=== PATIENT | male | born 2000 | race Asian ===

== ENCOUNTER 2023-08-08 13:39 | Outpatient (REF) | payer OTHER, SELFPAY ==
[2023-08-08 15:20] LABS: MANUAL DIFF FLAG NO
[2023-08-08 15:56] LABS: Basophils Percent Auto 0.5 % (0-2); Eosinophils Absolute Auto 0.1 X10*3/uL (0.0-0.4); Eosinophils Percent Auto 1.8 % (0-4); Hematocrit 46.1 % (42.0-52.0); Hemoglobin 15.1 g/dl (14.0-18.0); Imm Gran Abs Auto 0.02 X10*3/uL (0.00-0.03); Imm Gran Pct Auto 0.3 % (0.0-0.4); Lymphocytes Absolute Auto 2.4 X10*3/uL (1.2-4.9); Lymphocytes Percent Auto 32.7 % (20-40); Mean Corpuscular HGB Conc 32.8 g/dl (31.0-36.0); Mean Corpuscular Hemoglobin 24.4 pg (27.0-33.0); Mean Corpuscular Volume 74.5 fL (80.0-98.0); Mean Platelet Volume 10.4 fL (9.4-12.4); Monocytes Absolute Auto 0.7 X10*3/uL (0.1-1.2); Monocytes Percent Auto 9.3 % (2-11); Neutrophils Absolute Auto 4.1 x10*3/uL (2.0-8.3); Neutrophils Percent Auto 55.4 % (45-73); Platelet Count 312 X10*3/uL (160-400); Red Blood Count 6.19 X10*6/uL (4.60-5.80); Red Cell Distribution Width 13.9 % (11.0-16.0); White Blood Count 7.4 X10*3/uL (4.8-10.8)
[2023-08-08 16:37] LABS: Alanine Aminotransferase 22 U/L (0-40); Albumin Level 4.5 g/dL (3.5-5.0); Alkaline Phosphatase 126 U/L (39-117); Anion Gap 13 (12-20); Aspartate Amino Transferase 18 U/L (5-37); Bilirubin Total 0.2 mg/dL (0.0-1.0); Blood Urea Nitrogen 13 mg/dL (9-16); C Reactive Protein 0.34 mg/dL (< or = 0.50); Carbon Dioxide 27 mmol/L (22-29); Chloride 105 mmol/L (96-108); Estimated Glomerular Filt Rate > 60; Glucose Random 83 mg/dL (60-115); Sodium 141 mmol/L (135-145); Total Protein 8.3 g/dL (6.5-8.0)
[2023-08-08 16:43] LABS: Vitamin D 25-OH Total 14.4 ng/mL (>30)
[2023-08-08 17:04] LABS: Folate 10.4 ng/mL (> or = 4.0)
[2023-08-09 02:51] LABS: Vitamin B12 168 pg/mL (200-900)
== END 2023-08-08 13:40 | disposition home or self-care (01) ==
LOC: HO.LAB 13:39
PROVIDERS: Visit Provider Internal Medicine Gastroenterology
DX: K75.81 Nonalcoholic steatohepatitis (NASH) (principal); E46 Unspecified protein-calorie malnutrition; R19.8 Other specified symptoms and signs involving the digestive system and abdomen; R14.0 Abdominal distension (gaseous); Z91.018 Allergy to other foods
CPT/HCPCS: 36415; 80053; 82306; 82607; 82746; 85025; 86003; 86140

== ENCOUNTER 2023-08-08 13:39 | Outpatient (AMB) | payer OTHER, SELFPAY ==
--- NOTE | 2023-08-08 13:46 | A.OFFVIS_ITS ---
Intake Vital Signs 08/08/23 13:48 Height 5 ft 10 in Weight 204 lb 9.423 oz BMI 29.4 BP 151/84 H Blood Pressure Location Rt brachial Position Sitting Intake Visit Reasons: Pt appointment made per Bernarda Intake Note: Patient presents to in office visit today as a new patient for abdominal bloating. CC: Patient c/o increased gas, abdominal bloating, constipation, and diarrhea. Patient reports he had x4 surgeries for his toe and he was placed on abx and ever since he has being having GI issues. Toe surgeries were done between 09/16/22 -01/28/23. Hair Boiler Required: No Accompanied by: Spouse Allergies ibuprofen Allergy (Unknown, Verified 08/08/23 13:54) Rash HPI Pt appointment made per Bernarda HPI Details 23 yr old patient being seen for assessm ent for GI sx HE is having issues with bloating and gas sx for 8 months seems to have been after Abx and surgeries for a toe he can have urgency and cramping abdominal pain he can issues with rice no nausea, vomiting no skin rash he has leg discomfort for years he takes lo salt diet occ loose stool other times constipation he had taken probiotics trunature he has 3 meals a day, eggs and tea, rice with braga, roti --on and off fruits lactose intolerance --some difference with avoidance PMH: gout and high uric acid PSH: none SH: student, no alcohol, non smoker, FH: HTN and CABG in father and uncles ROS: Constitutional : No Weight loss, No Fever, No Chills ENT/Mouth : No sore throat, No Rhinorrhea Eyes: No Swelling, No Redness Cardiovascular : No Chest Pain, No SOB, No Edema Respiratory : No Cough, No Sputum, No Wheezing Gastrointestinal : see HPI Genitourinary : NO Dysuria, No Urinary Frequency, No Hematuria, No Urgency Musculoskeletal : No joint pain, No Myalgias, No Joint Swelling Skin : No Skin Lesions, No rash Neuro : No Weakness, No Numbness, No Dizziness, No Headache Psych : No Anxiety/Panic, No Depression, +stress Heme/Lymph: No Bruising, No Lymphadenopathy Endocrine : No Polyuria, No Polydipsia All other systems reviewed and are negative. EXAM: GENERAL: The patient is well developed and nontoxic. VITAL SIGNS:see workflow HEENT: Nonicteric sclerae, PERRLA, EOMI. Oropharynx clear. Moist mucous membranes. Conjunctivae appear well perfused. No thyroid mass. CHEST: Chest wall is nontender. HEART: Regular rate and rhythm without murmurs. LUNGS: Clear to auscultation bilaterally. ABDOMEN: Soft, positive bowel sounds, nontender, no organomegaly.no flank tenderness SKIN: No rash, no excessive bruising, petechiae, or purpura. NEUROLOGIC: Cranial nerves II-XII intact without motor/sensory deficit. Psych: nml affect A/P: 1/ Abnormal bowel habit, bloating and g as ddx: SIBO, CHO intolerance, c diff, less likely IBD, food allergies Plan: 1/ trial of rifaximin 2/ labs and stool testing, as below 3/ allergy testing [facility] Surgical History H/O wisdom tooth extraction H/O toe surgery Family History Father HTN (hypertension) Diabetes H/O heart surgery Social History Alcohol intake: never Patient Tobacco Use Status: Never used Tobacco Use of substances other than those prescribed or required for medical reasons: No Physical Exam Vital Signs: Last Vital Signs BP 151/84 H 08/08/23 13:48 BMI result Body Mass Index 29.4 Assessment & Plan Assessment & Plan (1) Malnutrition: Code(s): E46 - Unspecified protein-calorie malnutrition Plan: A/P: 1/ Abnormal bowel habit, bloating and gas ddx: SIBO, CHO intolerance, c diff, less likely IBD, food allergies Plan: 1/ trial of rifaximin 2/ labs and stool testing, as below 3/ allergy testing (2) Abnormal bowel habits: Code(s): R19.8 - Other specified symptoms and signs involving the digestive system and abdomen Plan: A/P: 1/ Abnormal bowel habit, bloating and gas ddx: SIBO, CHO intolerance, c diff, less likely IBD, food allergies Plan: 1/ trial of rifaximin 2/ labs and stool testing, as below 3/ allergy testing (3) Abdominal bloating: Code(s): R14.0 - Abdominal distension (gaseous) Plan: A/P: 1/ Abnormal bowel habit, bloating and gas ddx: SIBO, CHO intolerance, c diff, less likely IBD, food allergies Plan: 1/ trial of rifaximin 2/ labs and stool testing, as below 3/ allergy testing Orders: Orders Comprehensive Met. Panel Today E46 - Unspecified protein-calorie malnutrition, K75.81 - Nonalcoholic steatohepatitis ([place]ILSON), R14.0 - Abdominal distension (gaseous), R19.8 - Other specified symptoms and signs involving the digestive system and abdomen Lactoferrin, Fecal, Quant. Today E46 - Unspecified protein-calorie malnutrition, K51.50 - Left sided colitis without complications, R14.0 - Abdominal distension (gaseous), R19.8 - Other specified symptoms and signs involving the digestive system and abdomen Erythrocyte Sedimentation Rate Today E46 - Unspecified protein-calorie malnutrition, R14.0 - Abdominal distension (gaseous), R19.8 - Other specified symptoms and signs involving the digestive system and abdomen GI Panel Today E46 - Unspecified protein-calorie malnutrition, R14.0 - Abdominal distension (gaseous), R19.7 - Diarrhea, unspecified, R19.8 - Other specified symptoms and signs involving the digestive system and abdomen Vitamin B12 and Folate Today E46 - Unspecified protein-calorie malnutrition, R14.0 - Abdominal distension (gaseous), R19.8 - Other specified symptoms and signs involving the digestive system and abdomen Complete Blood Count Auto Diff Today E46 - Unspecified protein-calorie malnutrition, R14.0 - Abdominal distension (gaseous), R19.8 - Other specified symptoms and signs involving the digestive system and abdomen C Reactive Protein Today E46 - Unspecified protein-calorie malnutrition, R14.0 - Abdominal distension (gaseous), R19.8 - Other specified symptoms and signs involving the digestive system and abdomen CDiff Gene PCR Today E46 - Unspecified protein-calorie malnutrition, R14.0 - Abdominal distension (gaseous), R19.8 - Other specified symptoms and signs involving the digestive system and abdomen Vitamin D 25-OH Total Today E46 - Unspecified protein-calorie malnutrition, R14.0 - Abdominal distension (gaseous), R19.8 - Other specified symptoms and signs involving the digestive system and abdomen Rast Allergen Today E46 - Unspecified protein-calorie malnutrition, R14.0 - Abdominal distension (gaseous), R19.8 - Other specified symptoms and signs involving the digestive system and abdomen, Z91.018 - Allergy to other foods Medications: New rifaximin 550 mg PO TID 2 weeks 42 tabs 0RF Coding Level of Care Code New Pt Level 4 (24318) Diagnoses Malnutrition E46 Abnormal bowel habits R19.8 Abdominal bloating R14.0
[2023-08-08 13:48] VITALS: BP 151/84; BMI 29.4
== END 2023-08-08 15:01 | disposition home or self-care (01) ==
PROVIDERS: Visit Provider Internal Medicine Gastroenterology
DX: E46 Unspecified protein-calorie malnutrition (principal); R19.8 Other specified symptoms and signs involving the digestive system and abdomen; R14.0 Abdominal distension (gaseous)
CPT/HCPCS: 99204

== ENCOUNTER 2023-10-11 09:27 | Outpatient (REF) | payer OTHER, SELFPAY ==
[2023-10-12 10:55] LABS: CDiff Gene PCR NEGATIVE (Negative)
[2023-10-19 19:29] LABS: Lactoferrin, Fecal, Quant. <6.25 mcg/mL (<7.25)
== END 2023-10-11 09:28 | disposition home or self-care (01) ==
LOC: HO.LNP 09:27
PROVIDERS: Visit Provider Internal Medicine Gastroenterology
DX: K51.50 Left sided colitis without complications (principal); E46 Unspecified protein-calorie malnutrition; R14.0 Abdominal distension (gaseous); R19.8 Other specified symptoms and signs involving the digestive system and abdomen
CPT/HCPCS: 83631; 87493

== ENCOUNTER 2023-10-14 09:15 | Outpatient (REF) | payer OTHER, SELFPAY ==
[2023-10-14 11:57] LABS: Adenovirus F 40/41 Not Detected (Not Detect.); Astrovirus Not Detected (Not Detect.); Campylobacter Not Detected (Not Detect.); Cryptosporidium Not Detected (Not Detect.); Cyclospora cayetanensis Not Detected (Not Detect.); E. coli EAEC Detected (Not Detect.); E. coli EPEC Detected (Not Detect.); E. coli ETEC Not Detected (Not Detect.); E. coli STEC Not Detected (Not Detect.); Entamoeba histolytica Not Detected (Not Detect.); Giardia lamblia Not Detected (Not Detect.); Norovirus GI/GII Not Detected (Not Detect.); Plesiomonas shigelloides Not Detected (Not Detect.); Rotavirus A Not Detected (Not Detect.); Salmonella Not Detected (Not Detect.); Sapovirus Not Detected (Not Detect.); Shigella sp./EIEC Not Detected (Not Detect.); Vibrio Not Detected (Not Detect.); Vibrio Cholerae Not Detected (Not Detect.); Yersinia enterocolitica Not Detected (Not Detect.)
== END 2023-10-14 09:16 | disposition home or self-care (01) ==
LOC: HO.LNP 09:15
PROVIDERS: Visit Provider Internal Medicine Gastroenterology
DX: R19.7 Diarrhea, unspecified (principal); E46 Unspecified protein-calorie malnutrition; R14.0 Abdominal distension (gaseous); R19.8 Other specified symptoms and signs involving the digestive system and abdomen
CPT/HCPCS: 87507

== ENCOUNTER 2023-10-14 09:15 | Outpatient (AMB) | payer OTHER, SELFPAY ==
--- NOTE | 2023-10-14 09:21 | A.OFFVIS_ITS ---
Vital Signs 10/14/23 09:22 Height 5 ft 10 in Weight 207 lb 3.752 oz BMI 29.7 BP 149/74 H Blood Pressure Location Lt brachial Position Sitting Pulse 88 Intake Visit Reasons: 2 month follow up Intake Note: Sara presents in the office as a 2 month follow up. CC: Follow up appt - nothing has changed even after metronidazole so he is concerned as to what is happening. Central Supply Clerk Required: No Allergies ibuprofen Allergy (Unknown, Verified 10/14/23 09:22) Rash HPI HPI 2 month follow up: Details: 23 yr old patient being seen for f/u RECAP: HE is having issues with bloating and gas sx for 8 months seems to have been after Abx and surgeries for a toe he can have urgency and cramping abdominal pain he can issues with rice no nausea, vomiting no skin rash he has leg discomfort for years he takes lo salt diet occ loose stool other times constipation he had taken probiotics trunature he has 3 meals a day, eggs and tea, rice with braga, roti --on and off fruits lactose intolerance --some difference with avoidance INTERIM: He tried flagyl but stopped due to orange urine and yellow eyes, now resolved, he felt it never helped he is taking b12 supplement and D supplement due to v low levels he is doing more exercise and this is helping he still has diarrhea -post prandial he felt fasting during helped a lot EXAM: GENERAL: The patient is well developed and nontoxic. VITAL SIGNS:see workflow HEENT: Nonicteric sclerae, PERRLA, EOMI. Oropharynx clear. Moist mucous mem branes. Conjunctivae appear well perfused. No thyroid mass. CHEST: Chest wall is nontender. HEART: Regular rate and rhythm without murmurs. LUNGS: Clear to auscultation bilaterally. ABDOMEN: Soft, positive bowel sounds, nontender, no organomegaly.no flank tenderness SKIN: No rash, no excessive bruising, petechiae, or purpura. NEUROLOGIC: Cranial nerves II-XII intact without motor/sensory deficit. Psych: nml affect A/P: 1/ Abnormal bowel habit, bloating and gas, no real response w/ flagyl, low b12 concern would be crohns or small enteropathy Plan: 1/ EGD and colo with bx if covered, will send nulyte--if not covered then CTe--if both not covered then will need to discuss with inusrance 2/ recheck b12 and add anti parietal, intrinsic factor AB, lipids and a1c 3/ offered another trial of alternative abx, will hold for now [facility] Surgical History H/O wisdom tooth extraction H/O toe surgery Family History Father HTN (hypertension) Diabetes H/O heart surgery Social History Alcohol intake: never Patient Tobacco Use Status: Never used Tobacco Physical Exam Vital Signs: Last Vital Signs Pulse 88 10/14/23 09:22 BP 149/74 H 10/14/23 09:22 BMI result Body Mass Index 29.7 Assessment & Plan Assessment & Plan (1) Abdominal bloating: Code(s): R14.0 - Abdominal distension (gaseous) Category: Medical Plan: see above (2) Abnormal bowel habits: Code(s): R19.8 - Other specified symptoms and signs involving the digestive system and abdomen Category: Medical Plan: see above (3) B12 deficiency: Code(s): E53.8 - Deficiency of other specified B group vitamins Category: Medical Plan: see above Orders: Orders Vitamin B12 Today E53.8 - Deficiency of other specified B group vitamins, R14.0 - Abdominal distension (gaseous), R19.8 - Other specified symptoms and signs involving the digestive system and abdomen Hemoglobin A1c Today R14.0 - Abdominal distension (gaseous), R19.8 - Other specified symptoms and signs involving the digestive system and abdomen Lipid Panel with Reflex Today R14.0 - Abdominal distension (gaseous), R19.8 - Other specified symptoms and signs involving the digestive system and abdomen Parietal Cell Antibody Today R14.0 - Abdominal distension (gaseous), R19.8 - Other specified symptoms and signs involving the digestive system and abdomen Intrinsic Factor Antibodies Today R14.0 - Abdominal distension (gaseous), R19.8 - Other specified symptoms and signs involving the digestive system and abdomen Uric Acid Today R14.0 - Abdominal distension (gaseous), R19.8 - Other specified symptoms and signs involving the digestive system and abdomen CT enterography Today E53.8 - Deficiency of other specified B group vitamins, R10.33 - Periumbilical pain, R19.8 - Other specified symptoms and signs involving the digestive system and abdomen
[2023-10-14 09:22] VITALS: BP 149/74; PULSE 88; BMI 29.7
== END 2023-10-14 10:13 | disposition home or self-care (01) ==
PROVIDERS: Visit Provider Internal Medicine Gastroenterology
DX: R14.0 Abdominal distension (gaseous) (principal); R19.8 Other specified symptoms and signs involving the digestive system and abdomen; E53.8 Deficiency of other specified B group vitamins
CPT/HCPCS: 99214

== ENCOUNTER 2023-10-19 10:46 | Outpatient (REF) | payer OTHER, SELFPAY ==
[2023-10-19 12:12] LABS: Estimated Average Glucose 108 mg/dL; Hemoglobin A1c % 5.4 % (<6.0)
[2023-10-19 12:25] LABS: Cholesterol 191 mg/dL (<200); HDL Cholesterol 52 mg/dL (>40); LDL Cholesterol Calculated 97 mg/dL (<100); Triglycerides 211 mg/dL (<150); Uric Acid 8.8 mg/dL (3.4-7.0)
[2023-10-19 12:35] LABS: Erythrocyte Sedimentation Rate 5 MM/HR (0-15)
[2023-10-19 12:44] LABS: Reflex LDLD? No; Vitamin B12 646 pg/mL (200-900)
[2023-10-24 15:29] LABS: Parietal Cell Antibody <=20.0 Unit (<=20.0)
[2023-10-25 14:34] LABS: Intrinsic Factor Antibodies Negative (Negative)
== END 2023-10-19 10:47 | disposition home or self-care (01) ==
LOC: HO.LAB 10:46
PROVIDERS: Visit Provider Internal Medicine Gastroenterology
DX: R19.8 Other specified symptoms and signs involving the digestive system and abdomen (principal); R14.0 Abdominal distension (gaseous); E53.8 Deficiency of other specified B group vitamins; E46 Unspecified protein-calorie malnutrition
CPT/HCPCS: 36415; 80061; 82607; 83036; 83516; 84550; 85652; 86340